=== PATIENT | male | born 1975 | race Hispanic/Latino ===

== ENCOUNTER 2023-06-30 17:17 | Emergency (ER) | payer BC ==
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
--- NOTE | 2023-06-30 18:18 | RAD REPORT ---
EXAM DESCRIPTION: US - Extremity Nonvascular Limited - 06/30/2023 6:09 pm CLINICAL HISTORY: hematoma eval, rt hip COMPARISON: No comparisons TECHNIQUE: Real-time sonographic evaluation of the area of interest right hip was performed. FINDINGS: No abnormal fluid collections or masses seen. No unusual soft tissue finding. IMPRESSION: Negative study.
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
[2023-06-30] MEDS ORDERED: HYDROCODONE/APAP 5/325 MG TAB ONE (19:02)
[2023-06-30 19:27] VITALS: TEMP 97.1
[2023-06-30 19:28] VITALS: BP 142/81; O2SAT 97
== END 2023-06-30 19:17 | disposition home or self-care (01) ==
LOC: ER 17:17
DX: S70.01XA Contusion of right hip, initial encounter (principal); V29.99XA Rider (driver) (passenger) of other motorcycle injured in unspecified traffic accident, initial encounter; I10 Essential (primary) hypertension
CPT/HCPCS: 76882; 99283

== ENCOUNTER 2024-02-16 06:56 | Emergency (ER) | payer OTHER ==
[2024-02-16 07:43] LABS: Absolute Eosinophils 0.1 K/uL (0-0.5); Absolute Lymphocytes (CBC) 1.4 K/uL (0.7-4.9); Absolute Monocytes 0.6 K/uL (0.1-1.3); Absolute Neutrophil 4.3 K/uL (1.8-8.0); Basophils % 0.6 % (0-1.3); Eosinophils % 1.4 % (0-4.4); Hematocrit 49.4 % (39.6-49.0); Hemoglobin 16.7 g/dL (13.6-17.9); Lymphocytes % 21.7 % (15.3-44.8); MCH 29.2 pg (27.0-35.0); MCHC 33.9 g/dL (32.0-36.0); MCV 86.2 fL (80-100); MPV 7.3 fL (7.6-11.3); Monocytes % 9.8 % (3.3-12.3); Neutrophils % 66.5 % (41.7-73.7); Platelets 285 thou/uL (152-406); RBC Red Blood Cell Count 5.73 M/uL (4.33-5.43); Red Cell Distribution Width 13.7 % (12.1-15.2)
[2024-02-16 07:49] LABS: Specific Gravity 1.026 (1.005-1.030); Sqamous Epithelial <5 /HPF (None Seen); Urine Bacteria None Seen /HPF (<20); Urine Bilirubin NEGATIVE (Negative); Urine Blood Negative (Negative); Urine Clarity Clear (Clear); Urine Color Yellow (Yellow); Urine Culture Reflex Order NOT NEEDED; Urine Glucose NEGATIVE (Negative); Urine Ketones NEGATIVE (Negative); Urine Microscopic Reflex YN ORDER UMIC; Urine Mucus Slight /HPF (None Seen); Urine Nitrite NEGATIVE (Negative); Urine Protein TRACE (Negative); Urine RBC <5 /HPF (None Seen); Urine Urobilinogen 1+ (Normal); Urine WBC <5 /HPF (<5)
[2024-02-16 08:00] LABS: Albumin 3.3 g/dL (3.4-5.0); Albumin/Globulin Ratio 0.8 (1.1-1.8); Anion Gap 5.9 mEq/L (5.0-15.0); Bilirubin Total 0.4 mg/dL (0.2-1.0); Globulin 4.1 g/dL (2.3-3.5); Potassium 3.9 mEq/L (3.5-5.1); Protein, Total 7.4 g/dL (6.4-8.2)
[2024-02-16] MEDS ORDERED: FAMOTIDINE 20 MG/2 ML VIAL IV ONE (08:12)
[2024-02-16] MEDS ORDERED: NA CHLORIDE 0.9% 1,000 ML ONE (08:12)
[2024-02-16] MEDS ORDERED: MORPHINE 4 MG/ML SYR ONE (08:12)
--- NOTE | 2024-02-16 09:04 | RAD REPORT ---
EXAM DESCRIPTION: CT - Abdomen Pelvis W Contrast - 02/16/2024 8:16 am CLINICAL HISTORY: ABD PAIN COMPARISON: No comparisons TECHNIQUE: Thin cut axial CT imaging of the abdomen and pelvis was performed following intravenous a dministration of iodinated contrast. Multiplanar reformats were generated and reviewed. All CT scans are performed using dose optimization technique as appropriate and may include automated exposure control or mA/KV adjustment according to patient size. FINDINGS: No suspicious findings in the lung bases. The liver demonstrates small fluid density lesions, largest is subcapsular in the inferior right lobe measuring 1.8 cm. Many of these are less than 1 cm in size, difficult to characterize. Adrenal gland s, Spleen, and pancreas show no suspicious findings. Gallbladder and biliary tree are also without avalos spicious finding. Symmetric renal function is seen with no hydronephrosis or suspicious renal mass. No dilated bowel loops. Distal colonic diverticulosis. Appendix is unremarkable. Focal wall thickenin g and adjacent fat stranding along a diverticulum of the mid sigmoid colon projecting medially. The f at stranding is demarcated from the bladder dome by the peritoneal fold. No appreciable fluid collect ions. No free air, or free fluid. No hernia, mass or bulky lymphadenopathy. The urinary bladder is wi thout significant finding. No suspicious bony findings. IMPRESSION: Sequelae of uncomplicated acute mid sigmoid diverticulitis. No other suspicious abnormalities. Incidental findings as above. The findings were communicated to Dash Chandler on 02/16/2024 at 08:34 hours.
--- NOTE | 2024-02-16 09:11 | ER ---
Nurse's Notes [facility] Name: Jodee Campbell Age: 48 yrs Sex: Male : 1975 Arrival Date: 02/16/2024 Time: 06:56 Bed 5 Private MD: Diagnosis: Diverticulitis of large intestine without perforation or abscess without bleeding;Lower abdominal pain, unspecified Presentation: 02/15 07:32 Chief complaint: Patient states: Lower abdominal pain 03/02. Coronavirus screen: Vaccine ph status: Patient reports being unvaccinated. Ebola Screen: No symptoms or risks identified at this time. Initial Sepsis Screen: Does the patient meet any 2 criteria? No. Patient's initial sepsis screen is negative. Does the patient have a suspected source of infection? No. Patient's initial sepsis screen is negative. Risk Assessment: Do you want to hurt yourself or someone else? Patient reports no desire to harm self or others. Onset of symptoms was February 16, 2024. 07:32 Method Of Arrival: Ambulatory ph 07:32 Acuity: PATY 3 ph Historical: - Allergies: 07:34 No Known Allergies; ph - PMHx: 07:25 Hypertension; ll1 - Immunization history:: Adult Immunizations up to date. - Infectious Disease History:: Denies. - Social history:: Smoking status: unknown. Screenin:54 [facility] ED Fall Risk Assessment (Adult) History of falling in the last 3 months, ko1 including since admission No falls in past 3 months (0 pts) Confusion or Disorientation No (0 pts) Intoxicated or Sedated No (0 pts) Impaired Gait No (0 pts) Mobility Assist Device Used No (0 pt) Altered Elimination No (0 pt) Score/Fall Risk Level 0 - 2 = Low Risk Oriented to surroundings, Maintained a safe environment, Educated pt \T\ family on fall prevention, incl call for assistance when getting out of bed, Assessed \T\ reinforced patient's understanding of fall precautions, Provided non-skid footwear, Hourly rounding (assess needs \T\ fall precautionary measures) done, Used ambulatory aids as needed (educated on \T\ assisted with), Used gait belt as appropriate. Abuse screen: Denies threats or abuse. Denies injuries from another. Nutritional screening: No deficits noted. Tuberculosis screening: No symptoms or risk factors identified. Assessment: 08:54 General: Appears in no apparent distress. uncomfortable, Behavior is calm, cooperative, ko1 appropriate for age. Pain: Complains of pain in right lower quadrant. Neuro: No deficits noted. Cardiovascular: No deficits noted. Respiratory: No deficits noted. GI: Bowel sounds present X 4 quads. Abd is soft and non tender X 4 quads. : No deficits noted. EENT: No deficits noted. Derm: No deficits noted. Musculoskeletal: No deficits noted. Vital Signs: 07:32 BP 116 / 80; Pulse 64; Resp 18; Pulse Ox 99% on R/A; ph 08:54 BP 109 / 81; Pulse 57; Resp 14; Pulse Ox 99% ; ko1 ED Course: 07:00 Patient arrived in ED. jj6 07:02 Dash Chandler DO is Attending Physician. ms3 07:20 Arm band placed on Patient placed in an exam room, on a stretcher. ll1 07:34 Triage completed. ph 07:38 Urinalysis w/ reflexes Sent. bc6 07:38 CBC with Diff Sent. bc6 07:38 CMP Sent. bc6 07:38 Initial lab(s) drawn, by dc, sent to lab. Urine collected: clean catch specimen, apurva bc6 colored. Inserted saline lock: 20 gauge in right forearm, using aseptic technique. Blood collected. 08:10 Alanis Justice, RN is Primary Nurse. ko1 08:18 CT Abd/Pelvis - IV Contrast Only In Process Unspecified. EDMS 08:54 Patient has correct armband on for positive identification. Bed in low position. Call ko1 light in reach. Side rails up X 1. Provided Education on: call light, meds. Client placed on continuous cardiac and pulse oximetry monitoring. NIBP monitoring applied. monitor technician on. Door closed. Noise minimized. Lights dimmed. Warm blanket given. Pillow given. 08:54 No provider procedures requiring assistance completed. ko1 09:22 IV discontinued, intact, bleeding controlled, No redness/swelling at site. Pressure ko1 dressing applied. Administered Medications: 08:30 Drug: NS 0.9% IV 1000 ml IV at 1 bolus Per protocol; 1000 mL bolus Route: IV; Rate: 1 ko1 bolus; Site: right antecubital; 09:23 Follow up: Response: No adverse reaction; IV Status: Completed infusion; IV Intake: ko1 1000ml 08:30 Drug: Famotidine IVP 20 mg IVP once; dilute with 10 mL 0.9% NaCl; give over 2 minutes ko1 Route: IVP; Site: right antecubital; 08:45 Follow up: Response: No adverse reaction ko1 08:30 Drug: morphine IVP or IV 4 mg IVP once over 4 mins Route: IVP; Infused Over: 4 mins; ko1 Site: right antecubital; 08:45 Follow up: Response: No adverse reaction; Pain is decreased; RASS: Alert and Calm (0) ko1 Medication: 08:54 VIS not applicable for this client. ko1 Intake: 09:23 IV: 1000ml; Total: 1000ml. ko1 Outcome: 09:11 Discharge ordered by . ms3 09:22 Discharged to home ambulatory, with family, ko1 09:22 Condition: stable 09:22 Discharge instructions given to patient, family, Instructed on discharge instructions, follow up and referral plans. medication usage, Demonstrated understanding of instructions, follow-up care, medications, Prescriptions given X 1, 09:24 Patient left the ED. ko1 Signatures: Dispatcher [employer] EDMS Lakshmi Regan RN RN Calista Kolb RN RN ll1 Dash Chandler DO DO ms3 Queenie Abernathy jj6 Alanis Justice RN RN ko1 Jennifer Bernstein bc6
--- NOTE | 2024-02-16 09:12 | EDPHYS ---
Physician Documentation [facility] Name: Jodee Campbell Age: 48 yrs Sex: Male : 1975 Arrival Date: 02/16/2024 Time: 06:56 Bed 5 Private MD: ED Physician Dash Chandler HPI: 02/15 07:58 This 48 yrs old Male presents to ER via Ambulatory with complaints of ms3 Abdominal Pain. 07:58 48-year-old male with past medical history of hypertension presents to the emergency ms3 department for suprapubic abdominal pain that is rated 10/10. He endorses night sweats. Patient denies nausea, vomiting, diarrhea. Patient states his pain is currently a 3/10 and certain movements make the pain worse.. Historical: - Allergies: 07:34 No Known Allergies; ph - PMHx: 07:25 Hypertension; ll1 - Immunization history:: Adult Immunizations up to date. - Infectious Disease History:: Denies. - Social history:: Smoking status: unknown. ROS: 07:58 Constitutional: Negative for fever, and chills. Neck: Negative for injury, pain, and ms3 swelling, Cardiovascular: Negative for chest pain, and palpitations. Respiratory: Negative for shortness of breath, cough, wheezing, and pleuritic chest pain, 07:58 Skin: Negative for injury, rash, and discoloration, Neuro: Negative for headache, weakness, numbness, tingling. 07:58 Abdomen/GI: Positive for abdominal pain, Negative for nausea, vomiting, and diarrhea, Exam: 07:58 Constitutional: This is a well developed, well nourished patient who is awake, alert, ms3 and in no acute distress. Head/Face: Normocephalic, atraumatic. Neck: Trachea midline, no cervical lymphadenopathy. Supple, full range of motion without nuchal rigidity, or vertebral point tenderness. No Meningismus. Chest/axilla: Normal chest wall appearance and motion. Nontender with no deformity. Cardiovascular: Regular rate and rhythm with a normal S1 and S2. No gallops, murmurs, or rubs. Normal PMI, no JVD. No pulse deficits. Respiratory: Lungs have equal breath sounds bilaterally, clear to auscultation and percussion. No rales, rhonchi or wheezes noted. No increased work of breathing, no retractions or nasal flaring. 07:58 Abdomen/GI: Inspection: abdomen appears normal, Bowel sounds: normal, Palpation: moderate abdominal tenderness, in the right lower quadrant, Vital Signs: 07:32 BP 116 / 80; Pulse 64; Resp 18; Pulse Ox 99% on R/A; ph 08:54 BP 109 / 81; Pulse 57; Resp 14; Pulse Ox 99% ; ko1 MDM: 07:27 Patient medically screened. ms3 07:58 Differential diagnosis: appendicitis, bowel obstruction, diverticulitis, non-specific ms3 abd pain. 16:16 Data reviewed: vital signs, nurses notes, lab test result(s), radiologic studies, and ms3 as a result, I will discharge patient. I considered the following discharge prescriptions or medication management in the emergency department Medications were administered in the Emergency Department. See MAR. Independent interpretation of the following test(s) in the Emergency Department CT Scan: My interpretation is CT abdomen pelvis with IV contrast images reviewed do not reveal free air. Care significantly affected by the following chronic conditions: Hypertension. Counseling: I had a detailed discussion with the patient and/or guardian regarding the historical points, exam findings, and any diagnostic results supporting the discharge/admit diagnosis, lab results, radiology results, the need for outpatient follow up, to return to the emergency department if symptoms worsen or persist or if there are any questions or concerns that arise at home. Special discussion: Based on the patient's Hx, exam, and Dx evaluation, there is no indication for emergent surgery or inpatient Tx. It is understood by the patient/guardian that if the Sx's persist or worsen they need to return immediately for re-evaluation. ED course: Discussed labs and CT finding with patient and his . Patient to follow-up with primary care physician in 2 to 3 days. All questions were answered. Return precautions discussed include fevers, chills, worsening condition, or any other concerns. On reevaluation patient is improved, alert and oriented x 4, no apparent distress, nontoxic-appearing, speaking full sentences. 02/15 07:27 Order name: CBC with Diff; Complete Time: 08:02 ms3 02/15 07:27 Order name: CMP; Complete Time: 08:02 ms3 02/15 07:27 Order name: Urinalysis w/ reflexes; Complete Time: 08:02 ms3 02/15 07:27 Order name: CT Abd/Pelvis - IV Contrast Only; Complete Time: 09:05 ms3 02/15 07:27 Order name: IV Saline Lock; Complete Time: 07:38 ms3 02/15 07:27 Order name: Labs collected and sent; Complete Time: 07:38 ms3 Administered Medications: 08:30 Drug: NS 0.9% IV 1000 ml IV at 1 bolus Per protocol; 1000 mL bolus Route: IV; Rate: 1 ko1 bolus; Site: right antecubital; 09:23 Follow up: Response: No adverse reaction; IV Status: Completed infusion; IV Intake: ko1 1000ml 08:30 Drug: Famotidine IVP 20 mg IVP once; dilute with 10 mL 0.9% NaCl; give over 2 minutes ko1 Route: IVP; Site: right antecubital; 08:45 Follow up: Response: No adverse reaction ko1 08:30 Drug: morphine IVP or IV 4 mg IVP once over 4 mins Route: IVP; Infused Over: 4 mins; ko1 Site: right antecubital; 08:45 Follow up: Response: No adverse reaction; Pain is decreased; RASS: Alert and Calm (0) ko1 Disposition Summary: 02/16/24 09:11 Discharge Ordered Notes: Location: Home ms3 Condition: Stable ms3 Diagnosis - Diverticulitis of large intestine without perforation or abscess without bleeding ms3 - Lower abdominal pain, unspecified ms3 Followup: ms3 - With: Private Physician - When: 2 - 3 days - Reason: Recheck today's complaints Discharge Instructions: - Discharge Summary Sheet ms3 - Abdominal Pain, Adult ms3 - Diverticulitis, [id number] ms3 Forms: - Medication Reconciliation Form ms3 - Antibiotic Education ms3 - Prescription Opioid Use ms3 - Patient Portal Instructions ms3 - Leadership Thank You Letter ms3 Prescriptions: - Augmentin 875-125 mg Oral Tablet - take 1 tablet ORAL route every 12 hours for 10 days; 20 tablet; Refills: 0, ms3 Product Selection Permitted Signatures: Dispatcher [employer] Lakshmi Maynard RN RN ph Lewis, Lynsay, RN RN calos1 Dash Chandler DO DO ms3 Alanis Justice RN RN ko1
[2024-02-16 11:46] VITALS: BP 116/80; O2SAT 99
== END 2024-02-16 09:24 | disposition home or self-care (01) ==
LOC: ER 06:56
DX: K57.32 Diverticulitis of large intestine without perforation or abscess without bleeding (principal)
CPT/HCPCS: 85025; 81001; 36415; 80053; 74177; Q9967; J7030

== ENCOUNTER 2024-02-19 18:16 | Emergency (ER) | payer OTHER ==
[2024-02-19 19:48] LABS: Absolute Lymphocytes (CBC) 0.6 K/uL (0.7-4.9); Absolute Monocytes 0.4 K/uL (0.1-1.3); Absolute Neutrophil 4.8 K/uL (1.8-8.0); Basophils % 0.3 % (0-1.3); Eosinophils % 0.1 % (0-4.4); Hematocrit 50.9 % (39.6-49.0); Hemoglobin 16.9 g/dL (13.6-17.9); Lymphocytes % 10.3 % (15.3-44.8); MCH 28.5 pg (27.0-35.0); MCHC 33.3 g/dL (32.0-36.0); MCV 85.9 fL (80-100); MPV 6.7 fL (7.6-11.3); Monocytes % 7.1 % (3.3-12.3); Neutrophils % 82.2 % (41.7-73.7); Nucleated Red Blood Cells % 0.1 % (0-0); Platelets 293 thou/uL (152-406); RBC Red Blood Cell Count 5.92 M/uL (4.33-5.43); Red Cell Distribution Width 13.4 % (12.1-15.2)
[2024-02-19] MEDS ORDERED: NA CHLORIDE 0.9% 1,000 ML ONE (20:03)
[2024-02-19 20:18] LABS: Albumin 3.5 g/dL (3.4-5.0); Albumin/Globulin Ratio 0.9 (1.1-1.8); Anion Gap 6.8 mEq/L (5.0-15.0); Bilirubin Total 0.5 mg/dL (0.2-1.0); Globulin 3.9 g/dL (2.3-3.5); Potassium 3.8 mEq/L (3.5-5.1); Protein, Total 7.4 g/dL (6.4-8.2)
[2024-02-19 20:56] LABS: C.diff Antigen/Toxin Ag neg : Tox neg (NEG : NEG); CDIFF INTERNAL NEG CONTROL White Background (WHITE BKGD); STOOL CONSISTENCY Liquid/Semi-Solid
--- NOTE | 2024-02-19 21:29 | EDPHYS ---
Physician Documentation [facility] Name: Jodee Campbell Age: 48 yrs Sex: Male : 1975 Arrival Date: 02/19/2024 Time: 18:16 Bed 6 Private MD: ED Physician Merlin Jeff HPI: 02/18 19:15 This 48 yrs old Male presents to ER via Ambulatory with complaints of sent by cp pcp:abd pain pain getting worse.. 19:15 The patient presents to the emergency department with diarrhea, that is continuous. cp 19:15 Onset: The symptoms/episode began/occurred 3 day(s) ago. cp 19:15 Possible causes: antibiotics, Augmentin that was prescribed for diverticulitis. reports cp pcp prescribed Cipro and Flagyl to take and to stop the Augmentin. pain is not worse, no vomiting, reports fever today and continuous diarrhea. no blood in stool. Historical: - Allergies: 18:34 No Known Allergies; aa5 - Home Meds: 18:34 candesartan oral [Active]; rosuvastatin oral [Active]; aa5 - PMHx: 18:34 Hypertension; Diverticulitis; aa5 - PSHx: 18:34 right knee; aa5 - Immunization history:: Adult Immunizations unknown. - Infectious Disease History:: Denies. - Social history:: Smoking status: Patient denies any tobacco usage or history of. ROS: 19:20 Constitutional: Negative for fever, poor PO intake, cp 19:20 Eyes: Negative for injury, pain, redness, and discharge, cp 19:20 ENT: Negative for drainage from ear(s), ear pain, sore throat, difficulty swallowing, difficulty handling secretions, 19:20 Cardiovascular: Negative for chest pain, 19:20 Respiratory: Negative for cough, shortness of breath, wheezing, 19:20 Abdomen/GI: Positive for diarrhea, Negative for abdominal pain, nausea and vomiting, black/tarry stool, rectal bleeding, 19:20 Neuro: Negative for altered mental status, headache, weakness, 19:20 All other systems are negative, Exam: 19:25 Constitutional: The patient appears in no acute distress, alert, awake, non-toxic, well cp developed, well nourished, 19:25 Head/Face: Normocephalic, atraumatic. cp 19:25 Eyes: Periorbital structures: appear normal, Conjunctiva: normal, no exudate, no injection, Sclera: no appreciated abnormality, Lids and lashes: appear normal, bilaterally, 19:25 ENT: External ear(s): are unremarkable, Nose: is normal, Mouth: Lips: moist, Oral mucosa: pink and intact, moist, Posterior pharynx: is normal, airway is patent, no erythema, no exudate, 19:25 Chest/axilla: Inspection: normal, 19:25 Cardiovascular: Rate: normal, Rhythm: regular, 19:25 Respiratory: the patient does not display signs of respiratory distress, Respirations: normal, no use of accessory muscles, no retractions, labored breathing, is not present, Breath sounds: are clear throughout, no decreased breath sounds, no stridor, no wheezing, 19:25 Abdomen/GI: Inspection: abdomen appears normal, Bowel sounds: active, all quadrants, Palpation: abdomen is soft and non-tender, in all quadrants, 19:25 Neuro: Orientation: to person, place \T\ time. Mentation: is normal, Vital Signs: 18:34 BP 139 / 88; Pulse 80; Resp 20 S; Temp 97.9(TE); Pulse Ox 98% on R/A; Weight 101.6 kg aa5 (R); Height 6 ft. 4 in. (R); 19:51 BP 118 / 83; Pulse 80; Resp 20; Pulse Ox 100% ; pc2 21:27 BP 125 / 83; Pulse 82; Resp 18; Pulse Ox 100% on R/A; pc2 18:34 Body Mass Index 27.26 (101.60 kg, 193.04 cm) aa5 MDM: 18:38 Patient medically screened. cp 20:00 Differential diagnosis: dehydration, electrolyte abnormality, perforated cp diverticulitis, gi bleed, sepsis, c-dif. 21:27 Data reviewed: vital signs, nurses notes, lab test result(s), radiologic studies, CT cp scan, and as a result, I will discharge patient. 21:27 I considered the following discharge prescriptions or medication management in the emergency department Medications were administered in the Emergency Department. See MAR. Counseling: I had a detailed discussion with the patient and/or guardian regarding the historical points, exam findings, and any diagnostic results supporting the discharge/admit diagnosis, lab results, radiology results, the need for outpatient follow up, a family practitioner, a assistant media buyer, to return to the emergency department if symptoms worsen or persist or if there are any questions or concerns that arise at home. Response to treatment: the patient's symptoms have markedly improved after treatment, and as a result, I will discharge patient. 02/18 19:01 Order name: CBC with Diff; Complete Time: 20:53 cp 02/18 20:56 Interpretation: Normal except: RBC 5.92; HCT 50.9; MPV 6.7; AUSTYN% 82.2; LYM% 10.3; LYMA cp 0.6. 02/18 19:01 Order name: CMP; Complete Time: 20:53 cp 02/18 19:01 Order name: Lipase; Complete Time: 20:53 cp 02/18 19:01 Order name: Ova And Parasites cp 02/18 19:01 Order name: Rotavirus Antigen; Complete Time: 20:53 cp 02/18 19:01 Order name: Stool Culture cp 02/18 19:01 Order name: CDIFF; Complete Time: 21:23 cp 02/18 19:01 Order name: Lactate w/ 2H reflex if indic.; Complete Time: 20:53 cp 02/18 19:01 Order name: IV Saline Lock; Complete Time: 19:36 cp 02/18 19:01 Order name: Labs collected and sent; Complete Time: 19:36 cp Administered Medications: 20:05 Drug: NS 0.9% IV 1000 ml IV at 1 bolus Per protocol; 1000 mL bolus Route: IV; Rate: 1 pc2 bolus; Site: left antecubital; 21:23 Follow up: Response: No adverse reaction; Marked relief of symptoms; IV Status: pc2 Completed infusion; IV Intake: 1000ml Disposition: 02/19 20:43 Co-signature as Attending Physician, Merlin Jeff MD I reviewed the patient's care rt provided by the Advanced Practice Provider and agree with the diagnosis and treatment plan. Disposition Summary: 02/19/24 21:28 Discharge Ordered Notes: Location: Home cp Problem: new cp Symptoms: have improved cp Condition: Stable cp Diagnosis - Diarrhea, unspecified cp Followup: cp - With: Private Physician - When: 2 - 3 days - Reason: Recheck today's complaints Discharge Instructions: - Discharge Summary Sheet cp - Food Choices to Help Relieve Diarrhea, Adult cp - Diarrhea, Adult cp - Probiotics cp Forms: - Medication Reconciliation Form cp - Antibiotic Education cp - Prescription Opioid Use cp - Patient Portal Instructions cp - Leadership Thank You Letter cp Prescriptions: - Zofran 4 mg Oral Tablet - take 1 tablet ORAL route every 12 hours As needed; 20 tablet; Refills: 0, cp Product Selection Permitted Signatures: Dispatcher [employer] EDMS Melva Landrum, RN RN aa5 Aftab Jordan PA PA cp Merlin Jeff MD MD rt Christina johnson, RN RN pc2 Corrections: (The following items were deleted from the chart) 02/18 18:36 18:34 Home Meds: losartan 50 mg Oral tab 1 tab once daily; aa5 aa5 19:02 19:01 CBC+H.LAB.BRZ ordered. EDMS EDMS 19:02 19:01 COMPREHENSIVE METABOLIC PANEL+C.LAB.BRZ ordered. EDMS EDMS 19:02 19:02 LIPASE+C.LAB.BRZ ordered. EDMS EDMS 19:02 19:02 Urinalysis+U.LAB.BRZ ordered. EDMS EDMS 19:02 19:02 Ova and Parasites+MR.LAB.BRZ ordered. EDMS EDMS 19:02 19:02 Rotavirus Antigen+BA.LAB.BRZ ordered. EDMS EDMS 19:02 19:02 Stool Culture+BA.LAB.BRZ ordered. EDMS EDMS 19:02 19:02 C.difficile GDH Ag \T\ Toxin AB+LAB.BRZ ordered. EDMS EDMS 19:02 19:02 LACTATE+C.LAB.BRZ ordered. EDMS EDMS
--- NOTE | 2024-02-19 21:29 | ER ---
Nurse's Notes [facility] Name: Jodee Campbell Age: 48 yrs Sex: Male : 1975 Arrival Date: 02/19/2024 Time: 18:16 Bed 6 Private MD: Diagnosis: Diarrhea, unspecified Presentation: 02/18 18:34 Chief complaint: Patient states: "I was diagnosed with diverticulitis and since they aa5 put me on the antibiotics I went from being constipated to having diarrhea". Pt reports being sent here by Dr. Brian (PCP). 18:34 Coronavirus screen: diarrhea. Ebola Screen: Patient denies travel to an Ebola-affected [facility] area in the 21 days before illness onset. Initial Sepsis Screen: Does the patient meet any 2 criteria? No. Patient's initial sepsis screen is negative. Does the patient have a suspected source of infection? No. Patient's initial sepsis screen is negative. Risk Assessment: Do you want to hurt yourself or someone else? Patient reports no desire to harm self or others. Onset of symptoms was January 2024. 18:34 Method Of Arrival: Ambulatory aa5 18:34 Acuity: PATY 3 aa5 Historical: - Allergies: 18:34 No Known Allergies; aa5 - Home Meds: 18:34 candesartan oral [Active]; rosuvastatin oral [Active]; aa5 - PMHx: 18:34 Hypertension; Diverticulitis; aa5 - PSHx: 18:34 right knee; aa5 - Immunization history:: Adult Immunizations unknown. - Infectious Disease History:: Denies. - Social history:: Smoking status: Patient denies any tobacco usage or history of. Screenin:54 [facility] ED Fall Risk Assessment (Adult) History of falling in the last 3 months, pc2 including since admission No falls in past 3 months (0 pts) Confusion or Disorientation No (0 pts) Intoxicated or Sedated No (0 pts) Impaired Gait No (0 pts) Mobility Assist Device Used No (0 pt) Altered Elimination No (0 pt) Score/Fall Risk Level 0 - 2 = Low Risk Oriented to surroundings, Hourly rounding (assess needs \\T\\ fall precautionary measures) done. Abuse screen: Denies threats or abuse. Denies injuries from another. Nutritional screening: No deficits noted. Tuberculosis screening: No symptoms or risk factors identified. Assessment: 20:42 General: Appears in no apparent distress. well groomed, Behavior is calm, cooperative, pc2 appropriate for age. Pain: Denies pain. Neuro: Level of Consciousness is awake, alert, obeys commands, Oriented to person, place, time, situation, Appropriate for age. Cardiovascular: Patient's skin is warm and dry. Respiratory: Airway is patent Respiratory effort is even, unlabored, Respiratory pattern is regular, symmetrical. GI: Abdomen is non-distended, Last BM was February 19, 2024. at 19:45. Bowel sounds present X 4 quads. Abd is soft and non tender X 4 quads. Reports diarrhea, following antibiotics for diverticulitis having more than 20 episodes in the 1 day. : No signs and/or symptoms were reported regarding the genitourinary system. EENT: No signs and/or symptoms were reported regarding the EENT system. Derm: No signs and/or symptoms reported regarding the dermatologic system. Musculoskeletal: No signs and/or symptoms reported regarding the musculoskeletal system. Capillary refill < 3 seconds, Range of motion: intact in all extremities. 21:22 Reassessment: Patient and/or family updated on plan of care and expected duration. Pain pc2 level reassessed. Patient is alert, oriented x 3, equal unlabored respirations, skin warm/dry/pink. Patient is ambulating to restroom at this time. NAD noted.. Vital Signs: 18:34 BP 139 / 88; Pulse 80; Resp 20 S; Temp 97.9(TE); Pulse Ox 98% on R/A; Weight 101.6 kg aa5 (R); Height 6 ft. 4 in. (R); 19:51 BP 118 / 83; Pulse 80; Resp 20; Pulse Ox 100% ; pc2 21:27 BP 125 / 83; Pulse 82; Resp 18; Pulse Ox 100% on R/A; pc2 18:34 Body Mass Index 27.26 (101.60 kg, 193.04 cm) aa5 ED Course: 18:18 Patient arrived in ED. ra3 18:34 Arm band placed on. aa5 18:38 Aftab Jordan PA is PHCP. cp 18:38 Merlin Jeff MD is Attending Physician. cp 18:38 Triage completed. aa5 19:29 Christina johnson, RN is Primary Nurse. pc2 19:30 Inserted saline lock: 20 gauge in left antecubital area, using aseptic technique. Blood ha1 collected. 19:53 Patient has correct armband on for positive identification. Placed in gown. Call light pc2 in reach. Side rails up X2. Provided Education on: POC and time frame. Pulse ox on. NIBP on. 21:27 No provider procedures requiring assistance completed. pc2 21:34 IV discontinued, intact, bleeding controlled, No redness/swelling at site. Pressure pc2 dressing applied. Administered Medications: 20:05 Drug: NS 0.9% IV 1000 ml IV at 1 bolus Per protocol; 1000 mL bolus Route: IV; Rate: 1 pc2 bolus; Site: left antecubital; 21:23 Follow up: Response: No adverse reaction; Marked relief of symptoms; IV Status: pc2 Completed infusion; IV Intake: 1000ml Medication: 19:54 VIS not applicable for this client. pc2 Intake: 21:23 IV: 1000ml; Total: 1000ml. pc2 Outcome: 21:28 Discharge ordered by MD. cp 21:32 Discharged to home ambulatory, with family, pc2 21:32 Condition: stable 21:32 Discharge instructions given to patient, Instructed on discharge instructions, follow up and referral plans. medication usage, Demonstrated understanding of instructions, follow-up care, medications, 21:39 Prescriptions given X 1, pc2 21:39 Patient left the ED. pc2 Signatures: Melva Landrum, RN RN aa5 Aftab Jordan PA PA cp Ayala, Heidy RN RN ha1 Mamie Talley ra3 Christina johnson, RN RN pc2 Corrections: (The following items were deleted from the chart) 18:36 18:34 Home Meds: losartan 50 mg Oral tab 1 tab once daily; aa5 aa5 18:39 18:34 101.6 kg Reported; Height 6 ft. 4 in. Reported; BMI: 27.2; aa5 aa5 21:39 21:32 Condition: stable pc2 pc2
[2024-02-19 22:54] VITALS: BP 125/83; TEMP 97.9; O2SAT 100
== END 2024-02-19 21:39 | disposition home or self-care (01) ==
LOC: ER 18:16
DX: R19.7 Diarrhea, unspecified (principal)
CPT/HCPCS: 87045; 85025; 36415; 87177; 87046; 83605; 87209; 87324; 83690; 80053; 87425; 96360; 99284; J7030